=== PATIENT | female | born 1985 | race African-American/Black ===

== ENCOUNTER 2017-01-13 13:25 | Emergency (ER) | payer MEDICAID, OTHER ==
[~2017-01-13] VITALS: Ht 157.5 cm; Wt 68.0 kg
[2017-01-13] MEDS ORDERED: IBUPROFEN 600MG TABLET PO ONE (14:30)
[2017-01-13 15:11] LABS: CLARITY URINE CLEAR (CLEAR); COLOR URINE YELLOW (YELLOW); KETONES URINE NEGATIVE (NEGATIVE); LEUKOCYTE ESTERASE URINE NEGATIVE (NEGATIVE); NITRITE URINE NEGATIVE (NEGATIVE); OCCULT BLOOD URINE NEGATIVE (NEGATIVE); PROTEIN URINE NEGATIVE (NEGATIVE); SPECIFIC GRAVITY URINE 1.026 (1.005-1.030)
[2017-01-13] MEDS ORDERED: KETOROLAC 30MG/ML VIAL IM ONE (15:30)
[2017-01-13 16:04] VITALS: BP 118/68
== END 2017-01-13 16:06 | disposition home or self-care (01) ==
LOC: ER 14:09
DX: M54.9 Dorsalgia, unspecified (principal); F17.200 Nicotine dependence, unspecified, uncomplicated; F12.10 Cannabis abuse, uncomplicated
CPT/HCPCS: 81003; 81025; 96372; 99283; J1885

== ENCOUNTER 2017-07-22 15:10 | Emergency (ER) | payer MEDICAID, OTHER ==
[~2017-07-22] VITALS: Ht 157.5 cm; Wt 69.0 kg
[2017-07-22] MEDS ORDERED: SODIUM CHLORIDE 0.9% 1,000 ML IV ONE (20:49)
[2017-07-22] MEDS ORDERED: ONDANSETRON HCL 4MG/2ML VIAL IV STA (20:49)
[2017-07-22] MEDS ORDERED: KETOROLAC 30MG/ML VIAL IV STA (20:49)
[2017-07-22 21:43] LABS: BASOPHILS % 0.3 % (0.0-2.0); HEMATOCRIT. 36.9 % (36.0-48.0); HEMOGLOBIN. 11.7 g/dL (12.0-16.0); LYMPHOCYTES % 8.7 % (20.0-50.0); MEAN CORPUSCULAR HEMOGLOBIN 26.3 pg (28.0-32.0); MEAN CORPUSCULAR VOLUME 82.7 fL (81.0-99.0); MEAN PLATELET VOLUME 9.5 fl (7.4-10.4); MONOCYTES % 3.7 % (2.0-8.0); NEUTROPHILS % 86.3 % (40.0-76.0); PLATELET 233 x1000/uL (130-400); RED BLOOD CELL COUNT 4.46 mill/uL (4.2-5.4); RED CELL DISTRIBUTION WIDTH 19.1 % (11.6-14.6)
[2017-07-22 21:44] LABS: PROTHROMBIN TIME 10.6 sec (9.4-11.6)
[2017-07-22 21:47] LABS: CARBON DIOXIDE 27 mEq/L (21-32); CHLORIDE 107 mEq/L (98-107)
[2017-07-22 21:51] LABS: HCG SCREEN NEGATIVE
[2017-07-22 22:35] LABS: CLARITY URINE CLEAR (CLEAR); COLOR URINE YELLOW (YELLOW); KETONES URINE 3+ (NEGATIVE); LEUKOCYTE ESTERASE URINE NEGATIVE (NEGATIVE); NITRITE URINE NEGATIVE (NEGATIVE); OCCULT BLOOD URINE NEGATIVE (NEGATIVE); PROTEIN URINE NEGATIVE (NEGATIVE); SPECIFIC GRAVITY URINE 1.027 (1.005-1.030); UROBILINOGEN URINE 0.2 E.U./dL (0.2-1.0)
[2017-07-23] MEDS ORDERED: MAGNESIUM/ALUMINUM HYDROXIDE/SIMETHICONE 30ML UDC PO SCH (02:00)
[2017-07-23 02:35] VITALS: BP 114/73
== END 2017-07-23 04:02 | disposition home or self-care (01) ==
LOC: ER 15:41
DX: M54.12 Radiculopathy, cervical region (principal); R11.2 Nausea with vomiting, unspecified; R10.84 Generalized abdominal pain; M25.522 Pain in left elbow; F17.200 Nicotine dependence, unspecified, uncomplicated; Z87.442 Personal history of urinary calculi
CPT/HCPCS: 36415; 71045; 74176; 80053; 81003; 83690; 84703; 85025; 85610; 93005; 96361; 96374; 96375; 99285; J1885; J2405; J7030; Z7610

== ENCOUNTER 2017-08-07 08:45 | Emergency (ER) | payer MEDICAID, OTHER ==
[~2017-08-07] VITALS: Ht 157.5 cm; Wt 69.0 kg
[2017-08-07] MEDS ORDERED: KETOROLAC 60MG/2ML VIAL IM ONE (11:00)
[2017-08-07 11:02] VITALS: BP 119/80
== END 2017-08-07 11:04 | disposition home or self-care (01) ==
LOC: ER 09:55
DX: M54.5 Low back pain (principal); F17.200 Nicotine dependence, unspecified, uncomplicated; F12.10 Cannabis abuse, uncomplicated; Y92.410 Unspecified street and highway as the place of occurrence of the external cause; V49.88XA Car occupant (driver) (passenger) injured in other specified transport accidents, initial encounter; Y93.89 Activity, other specified; Y92.89 Other specified places as the place of occurrence of the external cause; Y99.8 Other external cause status
CPT/HCPCS: 96372; 99283; J1885; Z7610

== ENCOUNTER 2019-01-13 23:13 | Emergency (ER) | payer SELFPAY ==
[~2019-01-13] VITALS: Ht 157.5 cm; Wt 71.0 kg
[2019-01-14] MEDS ORDERED: TRAMADOL 50MG TABLET PO ONE (01:00)
[2019-01-14 01:03] VITALS: BP 126/72
[2019-01-14] MEDS ORDERED: PENICILLIN V POTASSIUM 250MG TABLET PO SCH (09:00)
== END 2019-01-14 01:04 | disposition home or self-care (01) ==
LOC: ER 23:13
DX: K02.51 Dental caries on pit and fissure surface limited to enamel (principal); K08.409 Partial loss of teeth, unspecified cause, unspecified class; K05.6 Periodontal disease, unspecified
CPT/HCPCS: 99283

== ENCOUNTER 2020-11-13 12:18 | Emergency (ER) | payer OTHER ==
[~2020-11-13] VITALS: Ht 157.5 cm; Wt 70.5 kg
[2020-11-13] MEDS ORDERED: KETOROLAC 60MG/2ML VIAL IM ONE (12:45)
[2020-11-13] MEDS ORDERED: METH-773 MT (14:11)
[2020-11-13] MEDS ORDERED: IBUP-2029 MT (14:11)
[2020-11-13 14:24] VITALS: BP 110/71
== END 2020-11-13 14:25 | disposition home or self-care (01) ==
LOC: ER 12:18
DX: M54.89 Other dorsalgia (principal)
CPT/HCPCS: 96372; 99283; J1885